=== PATIENT | female | born 1970 | race Caucasian/White ===

== ENCOUNTER 2019-05-26 20:32 | Emergency (ER) | payer BC ==
[2019-05-26 20:42] VITALS: BMI 29.2
--- NOTE | 2019-05-26 23:40 | PDOC ---
*Physical Exam - Vital Signs Last Vital Signs Temp Pulse Resp BP Pulse Ox 99 F 108 H 18 131/84 100 05/26/19 20:40 05/26/19 20:40 05/26/19 20:40 05/26/19 20:40 05/26/19 20:40 ED Treatment Course - LABORATORY CBC & Chemistry Diagram: 05/27/19 00:17 05/27/19 00:17 Medical Decision Making - Medical Decision Making 05/26/19 23:40 Patient seen by the advanced practice provider under my direct supervision. Ancillary testing reviewed as necessary. I agree with plan as outlined by the advanced practice provider. Discharge - Discharge Information Problems reviewed: Yes Clinical Impression/Diagnosis: Viral gastroenteritis Condition: Fair Disposition: HOME - Additional Discharge Information Prescriptions: Ondansetron [Zofran -] 4 mg PO TID PRN #21 tablet PRN Reason: Nausea And/Or Vomiting - Follow up/Referral Referrals: Sergio Mello [Primary Care Provider] - - Patient Discharge Instructions Additional Instructions: Rest, drink lots of fluids: Teas, water, soups Jossie jayden, carbonated beverages for the bubbles May try peppermint teas Avoid heavy , spicy or fatty foods until symptoms have resolved Avoid contact with others until fevers and symptoms resolved Lots of handwashing and good hygiene Continue pymb-sda-cyebuct medications for symptomatic relief Tylenol or Motrin for fever and pain May use Zofran-one tablet dissolved on tongue as needed for nauseousness. May repeat times one every 8 hours Followup with private physician in one to 2 days as needed Return to emergency department for worsened symptoms, fevers, dehydration - Post Discharge Activity Work/Back to School Note: Back to Work
[2019-05-26] MEDS ORDERED: SODIUM CHLORIDE 1,000 ML IV STA (23:52)
[2019-05-26] MEDS ORDERED: ONDANSETRON 4 MG/2 ML VIAL IVPUSH ONE (23:52)
[2019-05-26] MEDS ORDERED: ACETAMINOPHEN 1000 MG/100 ML VIAL (NON FORMULARY) IVPB ONE (23:53)
[2019-05-27] MEDS ORDERED: ACETAMINOPHEN INJECTION 100 ML IVPB ONE (00:02)
[2019-05-27] MEDS ORDERED: ONDANSETRON 4 MG/2 ML VIAL ONE (00:03)
--- NOTE | 2019-05-27 00:15 | PDOC ---
History of Present Illness - General Chief Complaint: Vomiting/Diarrhea Stated Complaint: VOMITING Time Seen by Provider: 05/26/19 23:33 History Source: Patient Exam Limitations: No Limitations - History of Present Illness Travel History: No Initial Comments: 05/27/19 00:11 HISTORY OF PRESENT ILLNESS: 48-year-old woman presents emergency department for evaluation of nausea, vomiting and diarrhea for the past 24 hours. Patient reports she has had difficulty tolerating p.o.'s including water. She reports liquids and is able to hold down for a brief period of time and then has vomiting. Patient also reports 20+ loose yellow stools over the past 24 hours. She denies any fevers or chills. Patient has not had any travel outside [place] and no recent antibiotic use. Patient also with achy pain to bilateral thighs and hips. No recent travel or sick contacts. PAST MEDICAL HISTORY: Denies past medical history SURGICAL HISTORY: Denies ALLERGIES: IV contrast, sulfa drugs, progesterone oil REVIEW OF SYSTEMS General/Constitutional: Denies fever or chills. Denies weakness, weight change. HEENT: Denies change in vision. Denies ear pain or discharge. Denies sore throat. Cardiovascular: Denies chest pain or shortness of breath. Respiratory: Denies cough, wheezing, or hemoptysis. Gastrointestinal: See HPI Genitourinary: Denies dysuria, frequency, or change in urination. Musculoskeletal: See HPI Skin and breasts: Denies rash or easy bruising. Neurologic: Denies headache, vertigo, loss of consciousness, or loss of sensation. Psychiatric: Denies depression or anxiety. Endocrine: Denies increased thirst. Denies abnormal weight change. Hematologic/Lymphatic: Denies anemia, easy bleeding, or history of blood clots. Allergic/Immunologic: Denies hives or skin allergy. Denies latex allergy. PHYSICAL EXAM General Appearance: Well-appearing, appropriately dressed. No apparent distress , no intoxication. HEENT: EOMI, PERRLA, normal ENT inspection, normal voice, TMs normal, pharynx normal. No conjunctival pallor. No photophobia, scleral icterus. Neck: Supple. Trachea midline. No tenderness, rigidity, carotid bruit, stridor , lymphadenopathy, or thyromegaly. Respiratory/Chest: Lungs CTAB. No shortness of breath, chest tenderness, respiratory distress, accessory muscle use. No crackles, rales, rhonchi, stridor , wheezing, dullness Cardiovascular: RRR. S1, S2. No JVD, murmur, bradycardia, tachycardia. Vascular Pulses: Dorsalis-Pedis (R): 2+, Dorsalis-Pedis (L): 2+ Gastrointestinal/Abdominal: Normal bowel sounds. Abdomen soft, non-distended. No tenderness or rebound tenderness. No organomegaly, pulsatile mass, guarding, hernia, hepatomegaly, splenomegaly. Lymphatic: No adenopathy, tenderness. Musculoskeletal/Extremities: Normal inspection. FROM of all extremities, normal capillary refill. Pelvis Stable. No CVA tenderness. No tenderness to extremities, pedal edema, swelling, erythema or deformity. Integumentary: Appropriate color, dry, warm. 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 Fully oriented, alert. Appropriate mood/affect. Motor strength 5/5. No appreciable EOM palsy, facial droop or sensory deficit. Past History - Past Medical History Allergies/Adverse Reactions: Allergies Allergy/AdvReac Type Severity Reaction Status Date / Time Iodinated Contrast Media Allergy Verified 05/26/19 20:39 Sulfa (Sulfonamide Allergy Verified 05/26/19 20:39 Antibiotics) Home Medications: Ambulatory Orders Fluoxetine HCl [Prozac] 40 mg PO DAILY 05/27/19 Levothyroxine Sodium [Synthroid] 88 mcg PO DAILY 05/27/19 Lisdexamfetamine Dimesylate [Vyvanse] 60 mg PO DAILY 05/27/19 Ondansetron [Zofran -] 4 mg PO TID PRN #21 tablet 05/27/19 COPD: No Other medical history: thyroid - Surgical History Cholecystectomy: Yes - Psycho Social/Smoking Cessation Hx Smoking History: Never smoked *Physical Exam - Vital Signs Last Vital Signs Temp Pulse Resp BP Pulse Ox 99 F 108 H 18 131/84 100 05/26/19 20:40 05/26/19 20:40 05/26/19 20:40 05/26/19 20:40 05/26/19 20:40 ED Treatment Course - LABORATORY CBC & Chemistry Diagram: 05/27/19 00:17 05/27/19 00:17 Medical Decision Making - Medical Decision Making 05/27/19 00:13 A/P: 48-year-old woman with nausea vomiting and diarrhea for the past 24 hours. Likely viral gastroenteritis although patient has been afebrile. CBC, CMP Urinalysis, urine culture Stool cultures-if able to collect influenza testing Normal saline 1 L IV bolus Tylenol 1 g IV Zofran 4 mg IV Reassess-low threshold to image 05/27/19 02:19 Patient reports improvement in symptoms after receiving IV hydration and nausea medicine. Abdominal exam remains benign Laboratory Tests 05/27/19 05/27/19 05/27/19 00:17 00:17 00:17 WBC 11.2 H RBC 4.44 Hgb 13.9 Hct 41.0 MCV 92.3 MCH 31.3 MCHC 33.9 RDW 12.8 Plt Count 383 MPV 7.3 L Absolute Neuts (auto) 10.1 H Neutrophils % 89.8 H Lymphocytes % 4.5 L Monocytes % 5.1 Eosinophils % 0.0 Basophils % 0.6 Nucleated RBC % 0 Sodium 136 Potassium 4.0 Chloride 102 Carbon Dioxide 27 Anion Gap 8 BUN 16.6 Creatinine 0.9 Est GFR (CKD-EPI)AfAm 87.02 Est GFR (CKD-EPI)NonAf 75.08 Random Glucose 130 H Calcium 9.4 Total Bilirubin 0.6 AST 18 ALT 24 Alkaline Phosphatase 88 Total Protein 7.8 Albumin 4.3 Influenza A (Rapid) Negative Influenza B (Rapid) Negative We will discharge patient home to follow-up with her primary doctor for continued evaluation of her symptoms. Strict return precautions have been provided to patient. Prescription for Zofran I discussed the physical exam findings, ancillary test results and final diagnoses with the patient. I answered all of the patient's questions. The patient was satisfied with the care received and felt comfortable with the discharge plan and treatment plan. The patient will call their primary care physician within 24 hours to arrange follow-up and will return to the Emergency Department with any new, persistent or worsening symptoms. Discharge - Discharge Information Problems reviewed: Yes Clinical Impression/Diagnosis: Viral gastroenteritis Condition: Fair Disposition: HOME - Admission No - Additional Discharge Information Prescriptions: Ondansetron [Zofran -] 4 mg PO TID PRN #21 tablet PRN Reason: Nausea And/Or Vomiting - Follow up/Referral Referrals: Sergio Mello [Primary Care Provider] - - Patient Discharge Instructions Additional Instructions: Rest, drink lots of fluids: Teas, water, soups Jossie jayden, carbonated beverages for the bubbles May try peppermint teas Avoid heavy , spicy or fatty foods until symptoms have resolved Avoid contact with others until fevers and symptoms resolved Lots of handwashing and good hygiene Continue [id number] medications for symptomatic relief Tylenol or Motrin for fever and pain May use Zofran-one tablet dissolved on tongue as needed for nauseousness. May repeat times one every 8 hours Followup with private physician in one to 2 days as needed Return to emergency department for worsened symptoms, fevers, dehydration - Post Discharge Activity Work/Back to School Note: Back to Work
[2019-05-27 00:36] LABS: BASO % 0.6 % (0-2.0); HEMOGLOBIN 13.9 GM/dL (10.7-15.3); LYMPH % 4.5 % (8-40); MCH 31.3 pg (25.7-33.7); MCHC 33.9 g/dl (32.0-36.0); MEAN CELL VOLUME 92.3 fl (80-96); MEAN PLT VOLUME 7.3 fl (7.5-11.1); MONO % 5.1 % (3.8-10.2); NEUT % 89.8 % (42.8-82.8); PLATELET COUNT 383 K/MM3 (134-434); RBC 4.44 M/mm3 (3.60-5.2); RDW 12.8 % (11.6-15.6); WHITE BLOOD COUNT 11.2 K/mm3 (4.0-10.0)
[2019-05-27 00:41] VITALS: BP 107/68; PULSE 102; TEMP 97.3
[2019-05-27 01:04] LABS: ALBUMIN 4.3 g/dl (3.4-5.0); BILIRUBIN,TOTAL 0.6 mg/dL (0.2-1); BLOOD UREA NITROGEN 16.6 mg/dL (7-18); CALCIUM 9.4 mg/dL (8.5-10.1); CREATININE 0.9 mg/dL (0.55-1.3); TOT PROT 7.8 g/dl (6.4-8.2)
== END 2019-05-27 03:25 | disposition home or self-care (01) ==
LOC: JER 20:32
PROC: 3E033GC Introduction of Other Therapeutic Substance into Peripheral Vein, Percutaneous Approach (ICD-10-PCS; principal; 2019-05-26)
PROC: 3E033NZ Introduction of Analgesics, Hypnotics, Sedatives into Peripheral Vein, Percutaneous Approach (ICD-10-PCS; 2019-05-26)
DX: A08.4 Viral intestinal infection, unspecified (principal); B97.89 Other viral agents as the cause of diseases classified elsewhere; Z91.041 Radiographic dye allergy status; Z88.2 Allergy status to sulfonamides
CPT/HCPCS: 36415; 80053; 85025; 87804; 99283-25; J0131; J7030